=== PATIENT | female | born 1990 | race Caucasian/White ===

== ENCOUNTER 2018-04-04 12:33 | Emergency (ER) | payer OTHER ==
--- NOTE | 2018-04-04 13:31 | EDM.PDOC ---
ED HPI GENERAL MEDICAL PROBLEM - General Chief Complaint: Lower Extremity Injury/Pain Stated Complaint: RIGHT ANKLE Time Seen by Provider: 04/04/18 12:52 Source of Information: Reports: Patient History Limitations: Reports: No Limitations - History of Present Illness INITIAL COMMENTS - FREE TEXT/NARRATIVE: Patient presents with pain to her right ankle and lower leg after a fall down several stairs at home at around 0930 this AM. She has full but painful range of motion with no visible deformity. No interventions [facility]. Some mild nausea. No other complaints. Denies dizziness, LOC, hitting her head. Onset: Today, Sudden Onset Date: 04/04/18 Onset Time: 09:30 Duration: Intermittent Location: Reports: Lower Extremity, Right Quality: Reports: Sharp Severity: Moderate Improves with: Reports: Rest Worsens with: Reports: Movement Associated Symptoms: Reports: Nausea/Vomiting Right Ankle Pain Score (Numeric/FACES): 6 - Related Data Allergies Allergy/AdvReac Type Severity Reaction Status Date / Time No Known Allergies Allergy Verified 04/04/18 12:56 Home Meds: Home Meds . [No Known Home Meds] 04/04/18 [History] Past Medical History - Past Health History Medical/Surgical History: Denies Medical/Surgical History Social & Family History - Tobacco Use Smoking Status *Q: Never Smoker Review of Systems - Review of Systems Review Of Systems: See Below Constitutional: Reports: No Symptoms Eyes: Reports: No Symptoms Ears: Reports: No Symptoms Nose: Reports: No Symptoms Mouth/Throat: Reports: No Symptoms Respiratory: Reports: No Symptoms Cardiovascular: Reports: No Symptoms GI/Abdominal: Reports: Nausea Genitourinary: Reports: No Symptoms Musculoskeletal: Reports: Leg Pain, Foot Pain Skin: Reports: No Symptoms Neurological: Reports: No Symptoms Psychiatric: Reports: No Symptoms ED EXAM, GENERAL - Physical Exam Exam: See Below Exam Limited By: No Limitations General Appearance: Alert, WD/WN, No Apparent Distress Eye Exam: Bilateral Eye: EOMI, Normal Inspection Ears: Normal TMs Nose: Normal Inspection, Normal Mucosa, No Blood Throat/Mouth: Normal Inspection, Normal Lips, Normal Teeth, Normal Gums, Normal Oropharynx, Normal Voice, No Airway Compromise Head: Atraumatic, Normocephalic Neck: Normal Inspection, Supple, Non-Tender, Full Range of Motion Respiratory/Chest: No Respiratory Distress, Lungs Clear, Normal Breath Sounds, No Accessory Muscle Use, Chest Non-Tender Cardiovascular: Normal Peripheral Pulses, Regular Rate, Rhythm, No Edema, No Gallop, No JVD, No Murmur, No Rub Peripheral Pulses: 2+: Posterior Tibial (L), Posterior Tibial (R), Dorsalis Pedis (L), Dorsalis Pedis (R) GI/Abdominal: Normal Bowel Sounds, Soft, Non-Tender, No Organomegaly, No Distention, No Abnormal Bruit, No Mass Extremities: Normal Inspection, No Pedal Edema, Normal Capillary Refill, Limited Range of Motion (tender right ankle) Neurological: Alert, Oriented, CN II-XII Intact, Normal Cognition, Normal Gait, Normal Reflexes, No Motor/Sensory Deficits Psychiatric: Normal Affect, Normal Mood Skin Exam: Warm, Dry, Intact, Normal Color, No Rash Lymphatic: No Adenopathy Course - Vital Signs Last Recorded V/S: Last Vital Signs Temp 36.6 C 04/04/18 12:40 Pulse 88 04/04/18 12:40 Resp 16 04/04/18 12:40 BP 131/78 04/04/18 12:40 Pulse Ox 95 04/04/18 12:40 - Orders/Labs/Meds Orders: Active Orders 24 hr Category Date Time Status Ankle Min 3V Rt [CR] Stat Exams 04/04/18 12:59 Ordered Tibia Fibula Rt [CR] Stat Exams 04/04/18 12:59 Ordered - Radiology Interpretation Free Text/Narrative:: x-ray negative for any acute fractures. Await radiology interpretation Departure - Departure Time of Disposition: 13:39 Disposition: Home, Self-Care 01 Condition: Good Clinical Impression: Moderate right ankle sprain - Discharge Information *PRESCRIPTION DRUG MONITORING PROGRAM REVIEWED*: No *COPY OF PRESCRIPTION DRUG MONITORING REPORT IN PATIENT FLORENCIA: No Instructions: Ankle Sprain, [id number] Additional Instructions: Make sure to stay well hydrated, use ibuprofen and tylenol for pain control. your injury does not call for the use of opioid pain medications. Keep the wrap on to provide compression. This will decrease swelling. Also elevate your leg as much as possible. This will also improve and reduce swelling. Apply ice to your ankle as well. Do not apply ice directly to your skin. Sometimes heat can make soft tissue and muscle injuries have better pain control. You could also try this if the above have not worked. Please follow up with your primary doctor for additional symptom management. If not better or improving over the next week, you may be in need of an MRI to look at your ligaments and any other soft tissue injury. Please call with any questions or concerns. - Problem List & Annotations (1) Moderate right ankle sprain SNOMED Code(s): 63198015 Code(s): S93.401A - SPRAIN OF UNSPECIFIED LIGAMENT OF RIGHT ANKLE, INIT ENCNTR Status: Acute Priority: Low Current Visit: Yes Qualifiers: Encounter type: initial encounter Qualified Code(s): S93.401A - Sprain of unspecified ligament of right ankle, initial encounter - Problem List Review Problem List Initiated/Reviewed/Updated: Yes - My Orders Last 24 Hours: My Active Orders 04/04/18 12:59 Ankle Min 3V Rt [CR] Stat Tibia Fibula Rt [CR] Stat - Assessment/Plan Last 24 Hours: My Active Orders 04/04/18 12:59 Ankle Min 3V Rt [CR] Stat Tibia Fibula Rt [CR] Stat Assessment:: right ankle sprain Plan: Make sure to stay well hydrated, use ibuprofen and tylenol for pain control. your injury does not call for the use of opioid pain medications. Keep the wrap on to provide compression. This will decrease swelling. Also elevate your leg as much as possible. This will also improve and reduce swelling. Apply ice to your ankle as well. Do not apply ice directly to your skin. Sometimes heat can make soft tissue and muscle injuries have better pain control. You could also try this if the above have not worked. Please follow up with your primary doctor for additional symptom management. If not better or improving over the next week, you may be in need of an MRI to look at your ligaments and any other soft tissue injury. Please call with any questions or concerns.
== END 2018-04-04 13:55 | disposition home or self-care (01) ==
LOC: VM.ED 12:33
DX: S93.401A Sprain of unspecified ligament of right ankle, initial encounter (principal); W10.9XXA Fall (on) (from) unspecified stairs and steps, initial encounter; Y92.009 Unspecified place in unspecified non-institutional (private) residence as the place of occurrence of the external cause
CPT/HCPCS: 73590-RT; 73610-RT; 81025; 99283